=== PATIENT | female | born 1950 | race African-American/Black ===

== ENCOUNTER 2017-07-28 03:08 | Emergency (ER) | payer MEDICARE ==
[2017-07-28] MEDS ORDERED: TRAMADOL HCL 50 MG TABLET PO ONE (03:34)
--- NOTE | 2017-07-28 03:39 | Emergency Department Record ---
History of Present Illness - General Chief Complaint: Back Pain/Injury Stated Complaint: CRONIC PAIN Time Seen by Provider: 07/28/17 03:33 Source: Patient Mode of Arrival: Ambulatory Limitations: No limitations - History of Present Illness Initial Comments: 67 yo female presents to ED with a CC of bilateral hand and low-back pain symptoms, reports that she is ought of her Tramadol. Patient moved from [place] back the area, has been unable to establish with a primary care provider. Patient denies recent injury, fevers, chills, or urinary symptoms. Patient denies health problems other than HTN. MD Complaint: Back pain Onset/Timin -: Week(s) Similar Symptoms Previously: Yes Severity scale (1-10): 10 Quality: Aching, Sharp Consistency: Constant Improves With: None Worsens With: Movement Associated Symptoms: Denies other symptoms Treatments Prior to Arrival: NSAIDS Treatment Prior to Arrival Comment:: prednisone - Related Data Home Medications Medication Instructions Recorded Confirmed Last Taken Amlodipine Besylate [Norvasc] 10 mg PO DAILY 07/28/17 07/28/17 Unknown Duloxetine HCl [Cymbalta] 60 mg PO QHS 07/28/17 07/28/17 Unknown Prednisone [Prednisone 10Mg] 10 mg PO DAILY 07/28/17 07/28/17 Unknown Tramadol HCl [Ultram] 100 mg PO Q6H PRN 07/28/17 07/28/17 Unknown Previous Rx's Medication Instructions Recorded Tramadol HCl 50 mg PO Q6H #21 tab 07/28/17 Allergies Allergy/AdvReac Type Severity Reaction Status Date / Time Penicillins Allergy HIVES Verified 07/28/17 03:12 Travel Screening - Travel/Exposure Within Last 30 Days Have you traveled within the last 30 days?: No - Travel Symptoms Symptom Screening: None Review of Systems Constitutional: Denies: Chills, Fever, Malaise, Night sweats Eyes: Denies: Eye discharge, Eye pain ENT: Denies: Congestion, Ear pain, Epistaxis Respiratory: Denies: Cough, Dyspnea Cardiovascular: Denies: Chest pain, Dyspnea on exertion Endocrine: Denies: Fatigue, Heat or cold intolerance Gastrointestinal: Denies: Abdominal pain, Nausea, Vomiting Genitourinary: Denies: Incontinence, Retention Musculoskeletal: Reports: Arthralgia, Back pain. Denies: Gout, Joint swelling Skin: Denies: Bruising, Change in color Neurological: Denies: Abnormal gait, Confusion, Headache, Seizure Psychiatric: Denies: Anxiety Hematological/Lymphatic: Denies: Anemia, Blood Clots Past Medical History - SOCIAL HISTORY Smoking Status: Former smoker - RESPIRATORY Hx Respiratory Disorders: Yes Comment:: seasonal allergies - CARDIOVASCULAR Hx Cardio Disorders: Yes Hx Hypertension: Yes Comment:: Aortic aneurysm - NEURO Hx Neuro Disorders: Yes Hx Headaches: Yes - GI Hx GI Disorders: No - Hx Genitourinary Disorders: Yes Hx Kidney Stones: Yes - ENDOCRINE Hx Endocrine Disorders: No Comment:: ? thyroid issues - MUSCULOSKELETAL Hx Musculoskeletal Disorders: Yes Hx Arthritis: Yes (RA) Comment:: Lupus; osteoporosis - PSYCH Hx Psych Problems: Yes Hx Anxiety: Yes - HEMATOLOGY/ONCOLOGY Hx Hematology/Oncology Disorders: No Family Medical History Any Significant Family History?: Yes Hx Cancer: Brother/Sister Hx Diabetes: Mother, Grandparents Hx Heart Disease: Mother, Children, Brother/Sister, Grandparents Physical Exam - General General Appearance: Alert, Oriented x3, Cooperative, Moderate distress Limitations: No limitations - Head Head exam: Atraumatic, Normocephalic, Normal inspection Head exam detail: negative: Abrasion, Contusion, Pascual's sign, General tenderness, Hematoma, Laceration - Eye Eye exam: Normal appearance. negative: Conjunctival injection, Periorbital swelling, Periorbital tenderness, Scleral icterus - ENT Ear exam: negative: Auricular hematoma, Auricular trauma Nasal Exam: negative: Active bleeding, Discharge, Dried blood, Foreign body Mouth exam: negative: Drooling, Laceration, Muffled voice, Tongue elevation - Neck Neck exam: Normal inspection. negative: Meningismus, Tenderness - Respiratory Respiratory exam: Normal lung sounds bilaterally. negative: Rales, Respiratory distress, Rhonchi, Stridor - Cardiovascular Cardiovascular Exam: Regular rate, Normal rhythm, Normal heart sounds - GI/Abdominal GI/Abdominal exam: Soft. negative: Rebound, Rigid, Tenderness - Rectal Rectal exam: Deferred - exam: Deferred - Extremities Extremities exam: Normal inspection, Full ROM. negative: Calf tenderness, Pedal edema, Tenderness - Back Back exam: Denies: CVA tenderness (R), CVA tenderness (L) - Neurological Neurological exam: Alert, Normal gait, Oriented X3. negative: Motor sensory deficit - Psychiatric Psychiatric exam: Normal affect, Normal mood - Skin Skin exam: Normal color. negative: Abrasion Type of lesion: negative: abrasion Course - Reevaluation(s) Reevaluation #1: 07/28/17 03:37 Patient was seen and examined, will restart the patient's Tramadol with instructions to follow-up with a PCP in the area in 3-5 days for further evaluation. Disposition Disposition: Discharge Clinical Impression: Chronic arthritis Disposition: Home, Self-Care Condition: (2) Stable Instructions: Osteoarthritis (ED) Additional Instructions: Return to ED if your symptoms worsen or if you have any concerns. Tramadol as directed. Follow-up with a primary care provider in 3-5 days as directed. Prescriptions: Tramadol HCl 50 mg PO Q6H #21 tab Forms: Patient Portal Access Time of Disposition: 03:40 Quality - Quality Measures Quality Measures: N/A - Blood Pressure Screening Does Patient Have Any of the Following: Active Dx of HTN Systolic Measurement: ~ Screening for High Blood Pressure: Patient Exclusion, Hx of HTN [G9744]
== END 2017-07-28 04:03 | disposition home or self-care (01) ==
LOC: ER 03:08
DX: M19.042 Primary osteoarthritis, left hand (principal); M19.041 Primary osteoarthritis, right hand; M46.86 Other specified inflammatory spondylopathies, lumbar region; I10 Essential (primary) hypertension; Z87.891 Personal history of nicotine dependence
CPT/HCPCS: 99282

== ENCOUNTER 2017-08-03 12:46 | Emergency (ER) | payer MEDICARE ==
--- NOTE | 2017-08-03 13:14 | Emergency Department Record ---
History of Present Illness - General Chief complaint: Extremity Problem Stated complaint: OSTEOARTHRITIS PAIN, LOWER BACK PAIN Time Seen by Provider: 08/03/17 13:13 Source: Patient, RN notes reviewed Mode of Arrival: Ambulatory - History of Present Illness Initial comments: patient has rheumatoid arthritis and it effects here hands and back and knees Onset/Timin -: Days(s) Location: Left, Right, Foot, Hand, Knee, Other History of Same: Yes Radiation: None Severity scale (1-10): 10 Quality: Aching Consistency: Constant Improves with: Medication Associated Symptoms: Denies other symptoms - Related Data Previous Rx's Medication Instructions Recorded Duloxetine HCl [Cymbalta] 60 mg PO QHS #30 08/03/17 Meloxicam 15 mg PO DAILY #30 tablet 08/03/17 Prednisone [Prednisone 10Mg] 10 mg PO DAILY #20 08/03/17 Tramadol HCl [Ultram] 50 mg PO Q8H #30 tab 08/03/17 Allergies Allergy/AdvReac Type Severity Reaction Status Date / Time Penicillins Allergy HIVES Verified 07/28/17 03:12 Travel Screening - Travel/Exposure Within Last 30 Days Have you traveled within the last 30 days?: No - Travel/Exposure Within Last Year Have you traveled outside the [place] in the last year?: No - Additonal Travel Details Have you been exposed to anyone with a communicable illness?: No Review of Systems Reviewed: No additional complaints except as noted below Constitutional: Reports: As per HPI. Denies: Chills, Fever, Malaise, Night sweats, Weakness, Weight change Eyes: Reports: As per HPI. Denies: Eye discharge, Eye pain, Photophobia, Vision change ENT: Reports: As per HPI. Denies: Congestion, Dental pain, Ear pain, Epistaxis , Hearing loss, Throat pain Respiratory: Reports: As per HPI. Denies: Cough, Dyspnea, Hemoptysis, Stridor, Wheezes Cardiovascular: Reports: As per HPI. Denies: Arrhythmia, Chest pain, Dyspnea on exertion, Edema, Murmurs, Orthopnea, Palpitations, Paroxysmal nocturnal dyspnea, Rheumatic Fever, Syncope Endocrine: Reports: As per HPI. Denies: Fatigue, Heat or cold intolerance, Polydipsia, Polyuria Gastrointestinal: Reports: As per HPI. Denies: Abdominal pain, Constipation, Diarrhea, Hematemesis, Hematochezia, Melena, Nausea, Vomiting Genitourinary: Reports: As per HPI. Denies: Abnormal menses, Discharge, Dyspareunia, Dysuria, Frequency, Hematuria, Incontinence, Retention, Urgency Musculoskeletal: Reports: As per HPI. Denies: Arthralgia, Back pain, Gout, Joint swelling, Myalgia, Neck pain Skin: Reports: As per HPI. Denies: Bruising, Change in color, Change in hair/ nails, Lesions, Pruritus, Rash Neurological: Reports: As per HPI. Denies: Abnormal gait, Confusion, Headache, Numbness, Paresthesias, Seizure, Tingling, Tremors, Vertigo, Weakness Psychiatric: Reports: As per HPI. Denies: Anxiety, Auditory hallucinations, Depression, Homicidal thoughts, Suicidal thoughts, Visual hallucinations Hematological/Lymphatic: Reports: As per HPI. Denies: Anemia, Blood Clots, Easy bleeding, Easy bruising, Swollen glands Past Medical History - SOCIAL HISTORY Smoking Status: Former smoker Alcohol Use: None Drug Use: None - RESPIRATORY Hx Respiratory Disorders: Yes Comment:: seasonal allergies - CARDIOVASCULAR Hx Cardio Disorders: Yes Hx Hypertension: Yes Comment:: Aortic aneurysm - NEURO Hx Neuro Disorders: Yes Hx Headaches: Yes - GI Hx GI Disorders: No - Hx Genitourinary Disorders: Yes Hx Kidney Stones: Yes - ENDOCRINE Hx Endocrine Disorders: No Comment:: ? thyroid issues - MUSCULOSKELETAL Hx Musculoskeletal Disorders: Yes Hx Arthritis: Yes (RA) Comment:: Lupus; osteoporosis - PSYCH Hx Psych Problems: Yes Hx Anxiety: Yes - HEMATOLOGY/ONCOLOGY Hx Hematology/Oncology Disorders: No Family Medical History Any Significant Family History?: Yes Hx Cancer: Brother/Sister Hx Diabetes: Mother, Grandparents Hx Heart Disease: Mother, Children, Brother/Sister, Grandparents Physical Exam - General General Appearance: Alert, Oriented x3, Cooperative, No acute distress - Head Head exam: Normal inspection - Eye Eye exam: Normal appearance, PERRL Pupils: Normal accommodation - ENT ENT exam: Normal exam, Mucous membranes moist, Normal external ear exam, Normal orophraynx, TM's normal bilaterally Ear exam: Normal external inspection. negative: External canal tenderness Nasal Exam: Normal inspection. negative: Discharge, Sinus tenderness Mouth exam: Normal external inspection, Tongue normal Teeth exam: Normal inspection. negative: Dental caries Throat exam: Normal inspection. negative: Tonsillar erythema, Tonsillar exudate - Neck Neck exam: Normal inspection, Full ROM. negative: Tenderness - Respiratory Respiratory exam: Normal lung sounds bilaterally. negative: Respiratory distress - Cardiovascular Cardiovascular Exam: Regular rate, Normal rhythm, Normal heart sounds - GI/Abdominal GI/Abdominal exam: Soft, Normal bowel sounds. negative: Tenderness - Rectal Rectal exam: Deferred - exam: Deferred - Extremities Extremities exam: Normal inspection, Full ROM, Normal capillary refill. negative: Tenderness - Back Back exam: Reports: Normal inspection, Full ROM. Denies: Muscle spasm, Rash noted, Tenderness - Neurological Neurological exam: Alert, Normal gait, Oriented X3, Reflexes normal - Psychiatric Psychiatric exam: Normal affect, Normal mood - Skin Skin exam: Dry, Intact, Normal color, Warm Course Vital Signs 08/03/17 12:51 Temperature 99.1 F Pulse Rate 88 Respiratory 98 H Rate Blood Pressure 138/99 Pulse Ox 100 Disposition Clinical Impression: Acute arthritis Disposition: Home, Self-Care Condition: (2) Stable Instructions: Rheumatoid Arthritis (ED) Additional Instructions: follow up with family in one week Prescriptions: Duloxetine HCl [Cymbalta] 60 mg PO QHS #30 Meloxicam 15 mg PO DAILY #30 tablet Prednisone [Prednisone 10Mg] 10 mg PO DAILY #20 Tramadol HCl [Ultram] 50 mg PO Q8H #30 tab Forms: Patient Portal Access Time of Disposition: 13:38 Quality - Quality Measures Quality Measures: N/A - Blood Pressure Screening Does Patient Have Any of the Following: No Blood Pressure Classification: Hypertensive Reading Systolic Measurement: 138 Diastolic Measurement: 99 Screening for High Blood Pressure: < First Hypertensive BP, F/U Documented > [ [id number]] First Hypertensive Follow-up Interventions: Referral to alternative/primary care provider.
== END 2017-08-03 13:50 | disposition home or self-care (01) ==
LOC: ER 12:46
DX: M06.9 Rheumatoid arthritis, unspecified (principal)
CPT/HCPCS: 99282